=== PATIENT | male | born 1980 | race Caucasian/White ===

== ENCOUNTER 2020-10-30 19:52 | Emergency (ER) | payer BC ==
[~2020-10-30] VITALS: Ht 185.4 cm; Wt 163.2 kg
--- NOTE | 2020-10-30 20:11 | ED Headache ---
General Stated Complaint: RECCURING VISION ISSUES/HEADACHE Source: patient Exam Limitations: no limitations History of Present Illness Date Seen by Provider: Oct 30, 2020 Time Seen by Provider: 20:09 Initial Comments To ER with c/o intermittent vision Changes. These have been occurring intermittently over the past year and are described as "crystallized vision". He has occasional headaches with them. This particular episode started last night and was described as kaleidoscope vision that lasted for about 15 minutes. That was followed by a headache which has subsequently resolved. . A few weeks ago he had a similar episode with some brief tingling in the right hand. He has not seen a physician in 20 years. States that it has taken him all day to work up the courage to come in here tonight. Timing/Duration: 1 week Severity/Quality: constant Location: frontal Associated Symptoms: denies symptoms, vision changes Allergies and Home Medications Allergies Coded Allergies: No Known Drug Allergies (Unverified , 10/30/20) Home Medications Lisinopril 10 Mg Tablet, 10 MG PO DAILY Prescribed by: RANULFO SOW on 10/30/202055 Patient Home Medication List Home Medication List Reviewed: Yes Review of Systems Review of Systems Constitutional: see HPI Eyes: See HPI, Blurred Vision Ears, Nose, Mouth, Throat: no symptoms reported Respiratory: no symptoms reported Cardiovascular: no symptoms reported Genitourinary: no symptoms reported Musculoskeletal: no symptoms reported Skin: no symptoms reported Psychiatric/Neurological: See HPI, Headache Past Mcoabyi-Cqloig-Llnmip Hx Patient Social History Recent Foreign Travel: No Contact w/Someone Who Travel: No Physical Exam Vital Signs Vital Signs - First Documented 10/30/20 20:00 Temp 36.9 Pulse 108 Resp 18 B/P (MAP) 207/110 (142) Pulse Ox 97 Capillary Refill : Height, Weight, BMI Height: '" Weight: lbs. oz. kg; BMI Method: General Appearance: WD/WN, no apparent distress Neck: non-tender, full range of motion Cardiovascular: regular rate, rhythm, no murmur Respiratory: lungs clear, normal breath sounds, no respiratory distress, no accessory muscle use Gastrointestinal: normal bowel sounds, non tender Extremities: normal range of motion, non-tender Psychiatric: oriented x 3 Crainal Nerves: normal hearing, normal speech, PERRL Skin: normal color, warm/dry Progress/Results/Core Measures Results/Orders Lab Results Laboratory Tests Test 10/30/20 20:10 Range/Units White Blood Count 8.5 4.3-11.0 10^3/uL Red Blood Count 5.84 H 4.30-5.52 10^6/uL Hemoglobin 17.1 13.3-17.7 g/dL Hematocrit 51 40-54 % Mean Corpuscular Volume 88 80-99 fL Mean Corpuscular Hemoglobin 29 25-34 pg Mean Corpuscular Hemoglobin Concent 34 32-36 g/dL Red Cell Distribution Width 12.9 10.0-14.5 % Platelet Count 261 130-400 10^3/uL Mean Platelet Volume 10.4 9.0-12.2 fL Immature Granulocyte % (Auto) 0 % Neutrophils (%) (Auto) 52 42-75 % Lymphocytes (%) (Auto) 35 12-44 % Monocytes (%) (Auto) 10 0-12 % Eosinophils (%) (Auto) 2 0-10 % Basophils (%) (Auto) 1 0-10 % Neutrophils # (Auto) 4.4 1.8-7.8 10^3/uL Lymphocytes # (Auto) 2.9 1.0-4.0 10^3/uL Monocytes # (Auto) 0.8 0.0-1.0 10^3/uL Eosinophils # (Auto) 0.2 0.0-0.3 10^3/uL Basophils # (Auto) 0.1 0.0-0.1 10^3/uL Immature Granulocyte # (Auto) 0.0 0.0-0.1 10^3/uL Erythrocyte Sedimentation Rate 4 0-15 MM/HR Sodium Level 141 135-145 MMOL/L Potassium Level 3.2 L 3.6-5.0 MMOL/L Chloride Level 104 98-107 MMOL/L Carbon Dioxide Level 23 21-32 MMOL/L Anion Gap 14 5-14 MMOL/L Blood Urea Nitrogen 15 7-18 MG/DL Creatinine 1.09 0.60-1.30 MG/DL Estimat Glomerular Filtration Rate > 60 BUN/Creatinine Ratio 14 Glucose Level 114 H 70-105 MG/DL Calcium Level 9.4 8.5-10.1 MG/DL Corrected Calcium 9.2 8.5-10.1 MG/DL Total Bilirubin 0.4 0.1-1.0 MG/DL Aspartate Amino Transf (AST/SGOT) 21 5-34 U/L Alanine Aminotransferase (ALT/SGPT) 43 0-55 U/L Alkaline Phosphatase 34 L 40-136 U/L Total Protein 7.7 6.4-8.2 GM/DL Albumin 4.3 3.2-4.5 GM/DL My Orders Orders - RANULFO SOW APRN Ct Head Wo (10/30/20 20:06) Cbc With Automated Diff (10/30/20 20:06) Erythrocyte Sedimentation Rate (10/30/20 20:06) Comprehensive Metabolic Panel (10/30/20 20:06) Ekg Tracing (10/30/20 20:06) Ed Iv/Invasive Line Start (10/30/20 20:06) Lorazepam Injection (Ativan Injection) (10/30/20 20:15) Metoprolol Tartrate Injection (Lopressor (10/30/20 20:15) Lisinopril Tablet (Zestril Tablet) (10/30/20 20:45) Ketorolac Injection (Toradol Injection) (10/30/20 20:45) Medications Given in ED Current Medications Medications Dose Ordered Sig/Trista Route Start Time Stop Time Status Last Admin Dose Admin Ketorolac Tromethamine 15 mg ONCE ONCE IVP 10/30/20 20:45 10/30/20 20:46 DC 10/30/20 21:11 15 MG Lisinopril 10 mg ONCE ONCE PO 10/30/20 20:45 10/30/20 20:46 DC 10/30/20 21:10 10 MG Lorazepam 0.5 mg ONCE PRN IVP 10/30/20 20:15 10/30/20 20:27 0.5 MG Metoprolol Tartrate 5 mg ONCE ONCE IV 10/30/20 20:15 10/30/20 20:16 DC 10/30/20 20:26 5 MG Vital Signs/I&O 10/30/20 20:00 Temp 36.9 Pulse 108 Resp 18 B/P (MAP) 207/110 (142) Pulse Ox 97 Departure Communication (Admissions) NAME: JUANITASERGEY LIEBERMAN REC#: [id number] PT STATUS: REG ER : 1980 PHYSICIAN: RANULFO SOW APRN ADMIT DATE: 10/30/20/ER Draft Date of Exam:10/30/20 CT HEAD WO EXAMINATION: CT head without contrast. TECHNIQUE: Multiple contiguous axial images were obtained through the brain without the use of intravenous contrast. All CT scans use one or more of the following dose optimizing techniques: automated exposure control, MA and/or KvP adjustment based on patient size and exam type or iterative reconstruction. HISTORY: Headache. COMPARISON: None available. FINDINGS: There is a prominent amount of fluid within the right temporal extra-axial space which likely represents a large arachnoid cyst. No significant mass effect or midline shift. The ventricles and sulci are otherwise normal. No abnormal attenuation of brain parenchyma is present. No acute intracranial hemorrhage or abnormal extra-axial fluid collection is present. No hyperdense vessel. The calvarium is intact. The mastoid air cells are clear. The visualized paranasal sinuses are clear. The orbits are normal. IMPRESSION: 1. No acute intracranial abnormality. 2. Prominent fluid density within the right temporal extra-axial space without significant mass effect or midline shift, likely representing a prominent arachnoid cyst. Dictated on workstation # [id number] Dict: 10/30/202122 Trans: 10/30/202126 [facility] [id number] Interpreted by: CARLOS EDUARDO ANAND DO Electronically signed by: Impression Primary Impression: Hypertension Additional Impression: Intracranial arachnoid cyst Disposition: 01 HOME, SELF-CARE Condition: Stable Departure-Patient Inst. Decision time for Depature: 20:54 Referrals: URBAN BURROUGHS MD, BETHANY N MD NO,LOCAL PHYSICIAN (PCP) Primary Care Physician STEFANO CHRISTENSEN CHAD C MD Patient Instructions: Lowering Your Risk of Heart Disease Add. Discharge Instructions: 1. Establish care with a primary care provider to follow-up on these issues and make sure they are improving. You will need an MRI scheduled to look at this area on the CT better and possibly referral to neurosurgeon. Return to ER for any concerns. Emergency department focuses on treating and ruling out life- threatening diseases. Whenever possible, a diagnosis is given. However, most patients are given an impression based on their history, physical exam, and workup during your brief time in the ER. Information about probable diagnosis and other educational material has been provided. Please take the time to read and understand this information. It is very important that you follow up with a physician as discussed during the visit today. Failure to adhere to your follow-up instructions may lead to severe disability, injury, or so please make sure to keep your appointments or obtain one as requested. Scripts Lisinopril (Lisinopril) 10 Mg Tablet 10 MG PO DAILY, #30 TAB Prov: RANULFO SOW APRN 10/30/20 RANULFO SOW APRN Oct 30, 2020 20:10
[2020-10-30] MEDS ORDERED: LORazepam INJ 2 MG/ML (ATIVAN) VIAL IVP PRN (20:15)
[2020-10-30] MEDS ORDERED: meTOprolol 5 MG/5 ML (LOPRESSOR) VIAL IV ONE (20:15)
[2020-10-30 20:18] LABS: BASOPHILS # (AUTO) 0.1 10^3/uL (0.0-0.1); BASOPHILS % (AUTO) 1 % (0-10); EOSINOPHILS # (AUTO) 0.2 10^3/uL (0.0-0.3); EOSINOPHILS % (AUTO) 2 % (0-10); HEMATOCRIT 51 % (40-54); HEMOGLOBIN 17.1 g/dL (13.3-17.7); LYMPHOCYTES # (AUTO) 2.9 10^3/uL (1.0-4.0); LYMPHOCYTES % (AUTO) 35 % (12-44); MEAN CORPUSCULAR HEMOGLOBIN 29 pg (25-34); MEAN CORPUSCULAR HGB CONC 34 g/dL (32-36); MEAN CORPUSCULAR VOLUME 88 fL (80-99); MEAN PLATELET VOLUME 10.4 fL (9.0-12.2); MONOCYTES # (AUTO) 0.8 10^3/uL (0.0-1.0); MONOCYTES % (AUTO) 10 % (0-12); NEUTROPHILS # (AUTO) 4.4 10^3/uL (1.8-7.8); NEUTROPHILS % (AUTO) 52 % (42-75); PLATELET COUNT 261 10^3/uL (130-400); WHITE BLOOD COUNT 8.5 10^3/uL (4.3-11.0)
[2020-10-30 20:35] LABS: ALANINE AMINOTRANSFERASE 43 U/L (0-55); ALBUMIN 4.3 GM/DL (3.2-4.5); ALKALINE PHOSPHATASE 34 U/L (40-136); BILIRUBIN,TOTAL 0.4 MG/DL (0.1-1.0); BUN/CREATININE RATIO 14; CALCIUM 9.4 MG/DL (8.5-10.1); CARBON DIOXIDE 23 MMOL/L (21-32); CHLORIDE 104 MMOL/L (98-107); CREATININE SERUM 1.09 MG/DL (0.60-1.30); GFR ESTIMATED > 60; GLUCOSE 114 MG/DL (70-105); POTASSIUM 3.2 MMOL/L (3.6-5.0); SODIUM 141 MMOL/L (135-145); TOTAL PROTEIN 7.7 GM/DL (6.4-8.2)
[2020-10-30 20:44] LABS: ERYTHROCYTE SEDIMENTATION RATE 4 MM/HR (0-15)
[2020-10-30] MEDS ORDERED: lisINopril 10 MG (PRINIVIL) TABLET PO ONE (20:45)
[2020-10-30] MEDS ORDERED: KETOROLAC 30 MG/ML VIAL IVP ONE (20:45)
[2020-10-30] MEDS ORDERED: LISI10TA2 PO (20:56)
--- NOTE | 2020-10-30 21:27 | Diagnostic Imaging Report ---
EXAMINATION: CT head without contrast. TECHNIQUE: Multiple contiguous axial images were obtained through the brain without the use of intravenous contrast. All CT scans use one or more of the following dose optimizing techniques: automated exposure control, MA and/or KvP adjustment based on patient size and exam type or iterative reconstruction. HISTORY: Headache. COMPARISON: None available. FINDINGS: There is a prominent amount of fluid within the right temporal extra-axial space which likely represents a large arachnoid cyst. No significant mass effect or midline shift. The ventricles and sulci are otherwise normal. No abnormal attenuation of brain parenchyma is present. No acute intracranial hemorrhage or abnormal extra-axial fluid collection is present. No hyperdense vessel. The calvarium is intact. The mastoid air cells are clear. The visualized paranasal sinuses are clear. The orbits are normal. IMPRESSION: 1. No acute intracranial abnormality. 2. Prominent fluid density within the right temporal extra-axial space without significant mass effect or midline shift, likely representing a prominent arachnoid cyst. Dictated by: Dictated on workstation # [id number]
[2020-10-30 21:40] VITALS: BP 127/92
== END 2020-10-30 21:41 | disposition home or self-care (01) ==
LOC: EDUNIT# 19:52 → ER 19:54
DX: I10 Essential (primary) hypertension (principal); G93.0 Cerebral cysts
CPT/HCPCS: 36415; 70450; 80053; 85025; 85652; 93005

== ENCOUNTER 2023-08-20 08:55 | Outpatient (CLI) | payer BC ==
[~2023-08-20 08:55] MED LIST: LISI10TA25 PO
== END 2023-08-20 09:20 ==
LOC: SLEEP 08:55
PROVIDERS: ATTEND Nurse Practitioner Family
DX: G47.10 Hypersomnia, unspecified (principal); G47.36 Sleep related hypoventilation in conditions classified elsewhere; I10 Essential (primary) hypertension; G47.33 Obstructive sleep apnea (adult) (pediatric)
CPT/HCPCS: G0399

== ENCOUNTER 2023-10-11 20:37 | Outpatient (CLI) | payer BC | END 2023-10-12 04:58 | LOC: SLEEP 20:37 | PROVIDERS: ATTEND Otolaryngology Otolaryngology/Facial Plastic Surgery | DX: G47.33 Obstructive sleep apnea (adult) (pediatric) (principal) | CPT/HCPCS: 95811 ==